=== PATIENT | female | born 1990 | race Caucasian/White ===

== ENCOUNTER 2020-10-26 13:32 | Emergency (ER) | payer OTHER ==
[~2020-10-26] VITALS: Ht 170.2 cm; Wt 61.2 kg
[2020-10-26] MEDS ORDERED: PROTONIX20 MG PO (14:54)
[2020-10-26] MEDS ORDERED: COLACE100 MG PO (14:54)
[2020-10-26] MEDS ORDERED: FIORICET 50-301 EACH (14:54)
[2020-10-26] MEDS ORDERED: ANALPRAM HC 2.530 GM PR (15:49)
[2020-10-26 16:02] VITALS: BP 103/67
== END 2020-10-26 16:00 | disposition home or self-care (01) ==
LOC: FSED 13:58
DX: U07.1 COVID-19 (principal); R05 Cough; K92.1 Melena; K64.4 Residual hemorrhoidal skin tags
CPT/HCPCS: 71046; 80053; 81003; 81025; 82270; 85025; 99284